=== PATIENT | female | born 1960 | race Caucasian/White ===

== ENCOUNTER → 2018-01-20 12:45 | Outpatient (CLI) | payer BC, SELFPAY ==
--- NOTE | 2018-01-20 12:53 | ECHOD_ITS ---
Reason For Study: MVP Procedure This was a 2D Doppler, Color Flow transthoracic echocardiogram. Exam performed in department. Left Ventricle Normal LV size. The estimated ejection fraction is 60 %. Transmitral diastolic flow velocities suggest mild (stage 1) diastolic dysfunction (reversed pattern). No regional wall motion abnormalities noted. Right Ventricle Normal RV size. Normal systolic function. Atria Normal left atrium. Normal right atrium. Mitral Valve Mild mitral valve prolapse. Mild-Moderate (1-2+) eccentric mitral valve insufficiency. Tricuspid Valve Normal tricuspid valve. Mild (1+) tricuspid valve insufficiency. Pulmonary artery systolic pressure is 25 mmHg. Aortic Valve Normal aortic valve. Trisinus/trileaflet aortic valve. Pulmonic Valve Normal pulmonic valve. Great Vessels Normal aortic root. The pulmonary artery is normal size. Normal inferior vena cava. Pericardium/Pleural No pericardial effusion. MMode/2D Measurements & Calculations LVIDd: 4.3 cm IVSd: 0.92 cm Ao root diam: 3.2 cm LVIDs: 2.8 cm LVPWd: 0.93 cm LA dimension: 3.4 cm RVDd: 2.5 cm FS: 34.7 % LAV(MOD-bp): 59.3 ml EDV(MOD-sp4): 65.3 ml SV(MOD-sp4): 49.3 ml LAV(MOD-bp) Indexed: 33.8 ml/m2 ESV(MOD-sp4): 15.9 ml LAV(MOD-sp2): 68.3 ml EF(MOD-sp4): 75.6 % LAV(MOD-sp4): 38.5 ml LA A4 area: 13.7 cm2 RA A4 area: 11.0 cm2 Doppler Measurements & Calculations MV E max aden: 89.9 cm/sec Lat Peak E' Aden: 9.0 cm/sec Med Peak E' Aden: 6.9 cm/sec MV A max aden: 62.4 cm/sec E/E' lat: 10.0 E/E' med: 13.0 MV E/A: 1.4 Ao V2 max: 146.5 cm/sec LV V1 max: 130.9 cm/sec PA V2 max: 110.8 cm/sec Ao max P.6 mmHg LV V1 max P.9 mmHg Ao V2 mean: 94.6 cm/sec Ao mean P.0 mmHg Ao V2 VTI: 31.1 cm TR max aden: 223.9 cm/sec TR max P.1 mmHg Interpretation Summary Normal LV size. The estimated ejection fraction is 60 %. Mild mitral valve prolapse. Mild-Moderate (1-2+) eccentric mitral valve insufficiency. Mild (1+) tricuspid valve insufficiency. Pulmonary artery systolic pressure is 25 mmHg. Transmitral diastolic flow velocities suggest mild (stage 1) diastolic dysfunction (reversed pattern). Ordering Physician: Brad Art Referring Physician: Brad Art Performed By: Re Henderson, MAXX, RVT
== END ==
PROVIDERS: Family Provider Family Medicine; PCP Family Medicine; Visit Provider Family Medicine
DX: I34.1 Nonrheumatic mitral (valve) prolapse (principal)
CPT/HCPCS: 93306

== ENCOUNTER → 2018-06-20 09:20 | Outpatient (CLI) | payer BC, SELFPAY ==
[2018-06-20 10:54] LABS: Cholesterol 262 mg/dL (200); High Density Lipoprotein 54 mg/dL; Triglycerides 173 mg/dL; Very Low Density Lipoprotein 35 mg/dL (5-40)
== END ==
PROVIDERS: Family Provider Family Medicine; PCP Family Medicine; Visit Provider Family Medicine
DX: E78.5 Hyperlipidemia, unspecified (principal)
CPT/HCPCS: 36415; 80061

== ENCOUNTER → 2018-09-16 10:20 | Outpatient (CLI) | payer BC, SELFPAY ==
[2018-01-22 15:12] VITALS: BMI 21.5
[2018-09-16 13:15] LABS: ALB/GLOB Ratio 1.2 RATIO (0.9-2.4); AST(SGOT) 14 U/L (15-37); Alanine Aminotransfer ALT/SGPT 18 U/L (13-56); Albumin, Serum 3.9 g/dL (3.2-5.0); Alkaline Phosphatase 74 U/L (45-117); Anion Gap 10 (5-15); BUN 12 mg/dL (7-18); BUN/Creat Ratio 16.5 RATIO (10-20); Calcium,Total 8.8 mg/dL (8.5-10.1); Chloride 106 mmol/L (98-107); Cholesterol 164 mg/dL (200); Creatinine, Serum 0.73 mg/dL (0.55-1.02); EST Glomerular Filtration Rate 88 mL/min (>60); Est Glom Filt Rate - Afr Amer 107 mL/min (>60); Globulin 3.3 g/dL (2.2-4.2); Glucose 78 mg/dL (74-106); High Density Lipoprotein 59 mg/dL; Potassium 3.8 mmol/L (3.5-5.1); Protein, Total 7.2 g/dL (6.4-8.2); Sodium Level 142 mmol/L (136-145); Triglycerides 103 mg/dL; Very Low Density Lipoprotein 21 mg/dL (5-40)
== END ==
PROVIDERS: Family Provider Family Medicine; PCP Family Medicine; Visit Provider Family Medicine
DX: Z02.9 Encounter for administrative examinations, unspecified (principal); Z13.220 Encounter for screening for lipoid disorders
CPT/HCPCS: 36415; 80053; 80061

== ENCOUNTER 2018-10-15 17:22 | Inpatient (IN) | payer BC, SELFPAY ==
[2018-10-15 17:24] VITALS: BP 119/73; PULSE 91; RESP 18; TEMP 37; O2SAT 95; BMI 21.1
[2018-10-15 17:25] VITALS: BP 132/73; PULSE 89; RESP 16; TEMP 37.3; O2SAT 96
[2018-10-15 18:24] LABS: Absolute Neutrophil Count 6.4 X10^3/uL (2.0-7.7); Basophil# 0.02 X10^3/uL; Basophil% 0.2 % (0-1); Eosinophil# 0.04 X10^3/uL; Eosinophils% 0.5 % (0-5); Hematocrit 39.4 % (37-47); Hemoglobin 13.6 g/dl (12.0-15.0); Lymphocyte % 10.9 % (19-41); Mean Corp Hgb Conc 34.5 g/gl (32-36); Mean Corpuscular Hgb 30.8 pg (27.0-32.0); Mean Corpuscular Volume 89.3 fL (81-99); Mean Platelet Vol. 10.4 fl (6.2-12.0); Monocyte# 0.82 X10^3/uL; Neutrophil # 6.43 X10^3/uL (2.7-7.7); Neutrophil % 78.3 % (47-70); Platelet Count 214 K/mm3 (150-450); RBC Distribution Width CV 12.4 % (11.6-14.6); Red Blood Count 4.41 M/mm3 (4.2-5.4); White Blood Count 8.2 K/mm3 (4.4-11.0)
[2018-10-15 18:25] VITALS: BP 128/64; PULSE 72; RESP 16; TEMP 36.9; O2SAT 96
[2018-10-15 18:31] LABS: Anion Gap 14 (5-15); BUN 13 mg/dL (7-18); BUN/Creat Ratio 16.4 RATIO (10-20); Calcium,Total 9.4 mg/dL (8.5-10.1); Chloride 98 mmol/L (98-107); Creatinine, Serum 0.79 mg/dL (0.55-1.02); EST Glomerular Filtration Rate 80 mL/min (>60); Est Glom Filt Rate - Afr Amer 97 mL/min (>60); Estimated Creatinine Clearance 76.87 ml/min; Glucose 92 mg/dL (74-106); Potassium 3.3 mmol/L (3.5-5.1); Sodium Level 134 mmol/L (136-145)
[2018-10-15 18:32] LABS: POSITIVE COUNT NO; POSITIVE DIFFERENTIAL NO; POSITIVE MORPHOLOGY NO
[2018-10-15] MEDS: 0.9% Normal Saline 1,000 ML 1000 ML IV (18:44)
[2018-10-15] MEDS: Ondansetron 4 MG/2 ML Vial IV (18:47)
--- NOTE | 2018-10-15 18:54 | CT_ITS ---
STUDY: CT ABDOMEN AND PELVIS WITH CONTRAST REASON FOR EXAM: Female, 58 years old. Abdominal pain. Recent hysterectomy. RADIATION DOSAGE (If Supplied By Facility): CTDIvol = ( 7.53 ) mGy, DLP = ( 633.59 ) mGycm TECHNIQUE: Transaxial images were obtained from the dome of the diaphragm to the symphysis pubis without oral contrast. 75 ml of Isovue 300 contrast was administered. Sagittal and coronal images were reconstructed. Individualized dose optimization techniques were used for this CT. COMPARISON: None. FINDINGS: Left lower lung airspace opacities. The visualized portions of the heart are within normal limits. Small hypodensities compatible with cysts in the liver. Normal gallbladder and extrahepatic biliary system. Normal spleen. Normal pancreas. Normal bilateral adrenal glands. There is 1.0 cm cyst of the right kidney. There is extrarenal pelvis on the right larger than the left. The ureters are not dilated. Normal visualized stomach. Normal small intestine. Normal colon. The appendix is visualized and appears normal. Normal abdominal aorta. Normal inferior vena cava. Normal retroperitoneum. Normal urinary bladder. There is absence of the uterus consistent with a prior hysterectomy. There is no free fluid in the abdomen or pelvis. Normal abdominal wall. Normal osseous structures. CT/Abdomen/Pelvis W IV Cont ONLY IMPRESSION: Status post hysterectomy. No fluid collection. No obstruction. Left lower lung pneumonia. Electronically Signed: Jesus Gibson MD at 19:51 EST , Service support ,
--- NOTE | 2018-10-15 18:54 | CT_ITS ---
STUDY: CTA CHEST REASON FOR EXAM: Female, 58 years old. Shortness of breath and cough, recent surgery RADIATION DOSAGE (If Supplied By Facility): CTDIvol = ( ) mGy, DLP = ( ) mGycm TECHNIQUE: The examination was performed with the intravenous administration of 75ML ml of Isovue 300 contrast material. Post-processing of the angiographic images was performed, with multiplanar reformation and 3D reconstruction. Individualized dose optimization techniques were used for this CT. COMPARISON: None. FINDINGS: Normal enhancement of the main pulmonary artery and right and left pulmonary arteries. Normal enhancement of the bilateral peripheral pulmonary arteries. There is no demonstrated pulmonary embolism. Normal thoracic aorta and visualized great vessels. There is no demonstrated aortic dissection. Normal heart and pericardium. Normal mediastinum. There is left hilar adenopathy, measuring approximately 4.2 x 2.3 x 2.4 cm. Normal visualized trachea and bronchi. The lungs are well expanded. There is left lower lobe infiltrate and/or atelectasis. Normal pleura. Normal chest wall structures. Normal osseous structures. There is a subcentimeter low-attenuation focus of the right hepatic lobe image 55 of series 2, indeterminate for solid versus cystic structure. CT/CTA Chest W/WO Contrast IMPRESSION: Normal CTA chest examination, without a demonstrated pulmonary embolism or arterial dissection. Left lower lobe infiltrate and/or atelectasis. Left hilar adenopathy Electronically Signed: Desean Salas MD at 19:59 EST , Service support ,
--- NOTE | 2018-10-15 18:55 | EKG12_ITS ---
Test Reason : Blood Pressure : / mmHG Vent. Rate : 084 BPM Atrial Rate : 084 BPM P-R Int : 162 ms QRS Dur : 070 ms QT Int : 376 ms P-R-T Axes : 064 -44 014 degrees QTc Int : 444 ms Normal sinus rhythm Possible Left atrial enlargement Left axis deviation Abnormal ECG Confirmed by MALACHI JAIME, TYRONE ([id number]), greeting card editor PRISCILA RUELAS ([id number]) on 10/17/2018 2:00:44 PM Referred By: Mar Garcia Confirmed By:TYRONE LY MD
--- NOTE | 2018-10-15 18:56 | ED.VISSUMM ---
- ER Visit Summary Date of Service: 10/15/18 Chief Complaint: [] Status post laparoscopic hysterectomy about 10 days ago, abdominal pain vomiting cough congestion body ache for days History of Present Illness: The patient is a 58 F [] that history as above patient believes a few days ago she developed body aches cough congestion, abdominal pain vomiting the symptoms all intensified today and she came in for evaluation. She indicates she had her per scopic hysterectomy related to cervical cancer there are no complications she was discharged the day of the surgery, she had a persistent sense of abdominal discomfort that really stable and unchanged and then she began vomiting having the body aches cough congestion shortness of breath she feels if she has the flu she believes she has had low-grade fever her bowel and urinary habits have been unremarkable her incisions are not draining, she generally has no past history Physical Examination: [] 119/80 95% room air sat, afebrile General, no distress resting comfortably HEENT is generally unremarkable The neck is supple no adenopathy Cardiovascular, regular rate and rhythm Lungs, clear bilateral Abdomen, soft nontender, she has the port sites are not draining she has a very mild pain related to palpation of these areas the pain she has she indicates is really not significantly different anyway from her postop status but seems to be worse since she began vomiting there is no rebound guarding organomegaly and there is no focality to her complaints of abdominal pain and again the port sites are not draining show no signs of infection Extremities, no clubbing cyanosis or edema Neurologic, awake alert answering questions appropriately moving all 4 extremities Differentials rather extensive given all the above she will undergo screening labs chest x-ray EKG IV fluids meds, CTA chest to evaluate for pneumonia or PE, CT abdomen Test Results: [] Emergency Department Course and Treatment: [] Please see all of the lab studies and CT reports in the computer, the patient has signs of UTI, signs of left lower lobe pneumonia, CT abdomen CTA chest otherwise showed nothing acute, cultures were sent, she was started on IV antibiotics we have asked the hospitalist see her further management admission Treatment Plan: [] Disposition: [] Admit stable Impression: [] Left lower lobe pneumonia, urinary tract infection, status post laparoscopic hysterectomy This note was generated with [employer]ation software. It may contain incorrect words, spelling, and punctuation that were not noted in review of the chart prior to signing ED Disposition - Plan for ED Patient: Chief Complaint: Nausea/Vomiting Referrals: Brad Art MD [Primary Care Provider] -
--- NOTE | 2018-10-15 19:00 | RAD_ITS ---
STUDY: X-RAY CHEST REASON FOR EXAM: Female, 58 years old. Flulike symptoms TECHNIQUE: Single AP portable view of the chest. COMPARISON: November 12, 2017. FINDINGS: There are left lower lung airspace opacities. There is nipple shadow on the right. There is no demonstrated pleural abnormality. Normal size heart. Normal mediastinum and rose. Normal visualized pulmonary arteries. Normal visualized aortic arch and descending thoracic aorta. Normal visualized thoracic spine. Normal visualized ribs, clavicles, and shoulders. There is no demonstrated abnormality of the visualized soft tissue structures of the upper abdomen. RAD/Chest 1 View (Portable) IMPRESSION: Left lower lung pneumonia. Electronically Signed: Jesus Gibson MD at 20:00 EST , Service support ,
[2018-10-15 19:04] LABS: Pregnancy, Serum, hCG Quali. NEGATIVE Negative (0-9 Nonpreg)
[2018-10-15] MEDS: 0.9% Normal Saline 1,000 ML 999 ML IV (19:04)
[2018-10-15 19:17] LABS: AST(SGOT) 13 U/L (15-37); Alanine Aminotransfer ALT/SGPT 11 U/L (13-56); Albumin, Serum 3.6 g/dL (3.2-5.0); Alkaline Phosphatase 64 U/L (45-117); Bilirubin, Direct 0.17 mg/dL (0.00-0.30); Globulin 4.9 g/dL (2.2-4.2); Lipase 202 U/L (73-393); Protein, Total 8.5 g/dL (6.4-8.2)
[2018-10-15 19:53] LABS: Mucous, Urine 0 SEEN /hpf (<or=2+); Red Blood Cells-Urine 0 SEEN /hpf (0-5)
[2018-10-15 20:03] LABS: Color, Urine Yellow (Yellow); Glucose, Dipstick Normal (Normal); Leukocyte Esterase-Dipstick 500 /ul (Negative); Nitrite-Dipstick Negative (Negative); Occult Blood-Urine 150 /ul (Negative); Protein-Dipstick 15 mg/dl (Negative); Urine Bilirubin Dipstick Negative (Negative); Urine Clarity Sl. Cloudy (Clear); Urine Urobilinogen Normal (Normal); Urine pH 6.5 (5.0 - 8.0)
[2018-10-15 20:04] LABS: Ketone-Dipstick 150 mg/dl (Negative)
--- NOTE | 2018-10-15 20:05 | ED.RN ---
CALL RECEIVED FROM LAB FOR [facility] VALUE OF 150. DR TOMLIN NOTIFIED.
[2018-10-15 20:06] LABS: White Blood Cells 10-25 SEEN /hpf (0-5)
[2018-10-15 20:07] LABS: Squamous Epithelial Cells - UA 0-5 SEEN /hpf (5-10)
[2018-10-15 20:08] LABS: Bacteria RARE /hpf (None Seen)
[2018-10-15 20:15] VITALS: BP 139/85; PULSE 83; RESP 20; O2SAT 100
[2018-10-15] MEDS: Ipratropium/Albuterol Sulfate 3 ML AMPUL.NEB INHALATION (20:48)
--- NOTE | 2018-10-15 21:31 | PCM.HP.STD ---
History of Present Illness Date of Admission: 10/15/18 Chief Complaint: Fever and productive cough for 3 days The patient is a 58 year old F past medical history as listed below. She was admitted through the ED on 10/15/2018 with a complaint of fever, productive cough, and some shortness of breath for the past 3 days. Patient had a laparoscopic hysterectomy about 10 days ago at [facility] on account of cervical cancer. Subsequently felt well but about 4 days ago started having the symptoms. Cough was productive of yellowish sputum and she had assisted mild shortness of breath. He also has subjective fever and chills. She denied any chest pain, any abdominal pain but admitted to nausea and vomiting. Review of systems otherwise negative. In the ED, vitals were significant for respiratory rate of 20 at time of review and labs showed sodium of 135 potassium of 3.3. CBC showed no leukocytosis with white cell count being 8.2. Chest CT done showed no demonstrated PE or aortic dissection but showed a left lower lobe infiltrate and/or atelectasis. Chest x-ray showed left lower lobe pneumonia as well. She is been admitted to for left lower lobe pneumonia. [] Past Medical History Allergies No Known Allergies Allergy (Verified 10/15/18 17:24) Home Medications: Ambulatory Orders Medication Instructions Recorded Acetaminophen [Tylenol Extra 500 mg PO Q6H PRN PRN 10/15/18 Strength] Rosuvastatin Calcium [Crestor] 10 mg PO QHS 10/15/18 Surgical History: Surgical History (Last Updated 01/22/18 @ 15:08 by Pretty Hartmann) Hx of cardiac cath Z98.890 Surgical History: - - laparoscopic hysterectomy at [facility] 10 days ago Psychiatric History: No pertinent psych hx FO[employer] T[employer]ER History: cervical cancer Lives: Spouse/ Significant Other Smoking Status: Never smoker Alcohol: None Drugs: None - *Family History Maternal History Items: Hypertension Paternal History Items: No pertinent history Review of Systems Constitutional: Reports: Chills, Fever, Malaise. Denies: Anorexia Eyes: Denies: Blurred vision HEENT: Denies: Head Aches, Sinus Congestion, Sinus Drainage Cardiovascular: Denies: Chest Pain, Chest Pressure, Heaviness, Orthopnea, Palpitations, Syncope Respiratory: Reports: Cough, Shortness of Breath, Sputum production. Denies: Shortness of breath at rest, Wheezing Gastrointestinal: Reports: Nausea, Vomiting. Denies: Abdominal Pain, Diarrhea Genitourinary: Denies: Dysuria Musculoskeletal: Denies: Joint Pain, Joint Tenderness Skin: Denies: Rash, Wounds Neurological: Denies: Numbness, Tingling, Focal weakness Psychiatric: Denies: Anxiety, Depression, Homicidal Ideations, Suicidal Ideations Hematologic/ Lymphatic: Denies: Easy Bruising, Easy Bleeding VTE Information - Inpt Only VTE Present on Admission: No VTE Pharm Prophylaxis ordered?: Yes - Physical Exam General: Alert, Oriented x3, Cooperative, No apparent distress HEENT: Atraumatic, PERRLA, EOMI, Normocephalic Oral: Moist Mucosa Neck: Supple, No JVD, Negative Carotid Bruits Lungs: Clear to auscultation, Normal air movement, No rhonchi, No wheeze, No rales Cardiovascular: Regular rate, Regular Rhythm, Normal S1, Normal S2, No murmurs Abdomen: Bowel Sounds Present, Soft, Non Tender, Non-Distended, No Hepato-splenomegaly Extremities: No clubbing, No cyanosis, No edema, Capillary Refill Less than 3 Seconds Skin: No rashes, No breakdown Musculoskeletal: No Tenderness to Palpation of Joints or Extremities Lymphatic: No Cervical, Supraclavicular, or Inguinal Adenopathy Neurological: Cranial nerves II-XII grossly intact Psych/Mental Status: Normal Affect, Appropriate, Alert and oriented to time, place, person, mood and affect Vital Signs Temp Pulse Resp BP Pulse Ox 98.4 F 83 20 H 139/85 H 100 10/15/18 18:25 10/15/18 20:15 10/15/18 20:15 10/15/18 20:15 10/15/18 20:15 Oxygen Delivery Method Room Air Weight: 135 lb Body Mass Index (BMI) 21.1 Laboratory Tests Past 24 Hrs 10/15/18 10/15/18 10/15/18 18:06 18:06 18:06 WBC 8.2 RBC 4.41 Hgb 13.6 Hct 39.4 MCV 89.3 MCH 30.8 MCHC 34.5 RDW 12.4 RDW Differential 40.0 Plt Count 214 MPV 10.4 Immature Gran % (Auto) 0.100 Neut % (Auto) 78.3 H Lymph % (Auto) 10.9 L Chase % (Auto) 10.0 Eos % (Auto) 0.5 Baso % (Auto) 0.2 Absolute Neuts (auto) 6.4 Absolute Lymphs (auto) 0.90 Total Counted Not Reportable Sodium 134 L Potassium 3.3 L Chloride 98 Carbon Dioxide 22.0 Anion Gap 14 BUN 13 Creatinine 0.79 Estim Creat Clear Calc 76.87 Est GFR (MDRD) Af Amer 97 Est GFR (MDRD) Non-Af 80 BUN/Creatinine Ratio 16.4 Glucose 92 Calcium 9.4 Total Bilirubin Direct Bilirubin AST ALT Alkaline Phosphatase Troponin I Total Protein Albumin Globulin Lipase Serum , Qual NEGATIVE Urine Color Urine Clarity Urine pH Ur Specific [place] Urine Protein Urine Glucose (UA) Urine Ketones Urine Occult Blood Urine Nitrite Urine Bilirubin Urine Urobilinogen Ur Leukocyte Esterase Urine RBC Urine WBC Ur Squamous Epith Cells Urine Bacteria Urine Mucus 10/15/18 10/15/18 10/15/18 18:06 18:06 19:50 WBC RBC Hgb Hct MCV MCH MCHC RDW RDW Differential Plt Count MPV Immature Gran % (Auto) Neut % (Auto) Lymph % (Auto) Chase % (Auto) Eos % (Auto) Baso % (Auto) Absolute Neuts (auto) Absolute Lymphs (auto) Total Counted Sodium Cancelled Potassium Cancelled Chloride Cancelled Carbon Dioxide Cancelled Anion Gap Cancelled BUN Cancelled Creatinine Cancelled Estim Creat Clear Calc Est GFR (MDRD) Af Amer Cancelled Est GFR (MDRD) Non-Af Cancelled BUN/Creatinine Ratio Cancelled Glucose Cancelled Calcium Cancelled Total Bilirubin 0.80 Direct Bilirubin 0.17 AST 13 L ALT 11 L Alkaline Phosphatase 64 Troponin I 0.016 Total Protein 8.5 H Albumin 3.6 Globulin 4.9 H Lipase 202 Serum , Qual Urine Color Yellow Urine Clarity Sl. Cloudy Urine pH 6.5 Ur Specific [place] 1.010 Urine Protein 15 H Urine Glucose (UA) Normal Urine Ketones 150 H Urine Occult Blood 150 H Urine Nitrite Negative Urine Bilirubin Negative Urine Urobilinogen Normal Ur Leukocyte Esterase 500 H Urine RBC 0 SEEN Urine WBC 10-25 SEEN Ur Squamous Epith Cells 0-5 SEEN Urine Bacteria RARE Urine Mucus 0 SEEN Assessment/Plan 58-year-old female admitted with complaint of subjective fever and chills as well as productive cough, nausea and vomiting. 1. health associated pneumonia had same day surgery about 10 days ago at [facility]- laparoscopic hysteretomy for cervical cancer CXR showed left lower lobe pneumonia, confirmed by CT chest. CT chest showed no PE admit to Med Surg monitored bed CBC no leucocytosis UA showed evidence of UTI, though patient is asymptomatic will give IV levofloxacin hydrate with IVF NS check urine for strep and legionella antigen 2. Kalemia: Potassium is 2.3. We will replace and monitor 3. Hyponatremia: Sodium is 134. Likely due to nausea and vomiting and dehydration. Should resolve with IV fluid administration. Will monitor. 4. Hyperlipideimia: on rosuvastatin 5. History of cervical cancer s/p laparoscopic hysterectomy stable. surgical wounds are well healed will monitor DVT prophylaxis: heparin Code status: full code Patient counseled extensively about different types of CODE STATUS including full code, DNR CCA and DNR CCA. Patient elects to be full code. Total [id number] time 17 minutes. Code Visit OBSV E&M: 90152 Initial observation care L3 Procedures: 33139 Advncd Care Plan 30 Min
--- NOTE | 2018-10-15 21:38 | HP.PCM_ITS ---
History of Present Illness Date of Admission: 10/15/18 Chief Complaint: Fever and productive cough for 3 days The patient is a 58 year old F past medical history as listed below. She was admitted through the ED on 10/15/2018 with a complaint of fever, productive cough, and some shortness of breath for the past 3 days. Patient had a laparoscopic hysterectomy about 10 days ago at [facility] on account of cervical cancer. Subsequently felt well but about 4 days ago started having the symptoms. Cough was productive of yellowish sputum and she had assisted mild shortness of breath. He also has subjective fever and chills. She denied any chest pain, any abdominal pain but admitted to nausea and vomiting. Review of systems otherwise negative. In the ED, vitals were significant for respiratory rate of 20 at time of review and labs showed sodium of 135 potassium of 3.3. CBC showed no leukocytosis with white cell count being 8.2. Chest CT done showed no demonstrated PE or aortic dissection but showed a left lower lobe infiltrate and/or atelectasis. Chest x-ray showed left lower lobe pneumonia as well. She is been admitted to for left lower lobe pneumonia. [] Past Medical History Allergies No Known Allergies Allergy (Verified 10/15/18 17:24) Home Medications: Ambulatory Orders Medication Instructions Recorded Acetaminophen [Tylenol Extra 500 mg PO Q6H PRN PRN 10/15/18 Strength] Rosuvastatin Calcium [Crestor] 10 mg PO QHS 10/15/18 Surgical History: Surgical History (Last Updated 01/22/18 @ 15:08 by Pretty Hartmann) Hx of cardiac cath Z98.890 Surgical History: - - laparoscopic hysterectomy at [facility] 10 days ago Psychiatric History: No pertinent psych hx [employer]LY[employer] History: cervical cancer Lives: Spouse/ Significant Other Smoking Status: Never smoker Alcohol: None Drugs: None - *Family History Maternal History Items: Hypertension Paternal History Items: No pertinent history Review of Systems Constitutional: Reports: Chills, Fever, Malaise. Denies: Anorexia Eyes: Denies: Blurred vision HEENT: Denies: Head Aches, Sinus Congestion, Sinus Drainage Cardiovascular: Denies: Chest Pain, Chest Pressure, Heaviness, Orthopnea, Palpitations, Syncope Respiratory: Reports: Cough, Shortness of Breath, Sputum production. Denies: Shortness of breath at rest, Wheezing Gastrointestinal: Reports: Nausea, Vomiting. Denies: Abdominal Pain, Diarrhea Genitourinary: Denies: Dysuria Musculoskeletal: Denies: Joint Pain, Joint Tenderness Skin: Denies: Rash, Wounds Neurological: Denies: Numbness, Tingling, Focal weakness Psychiatric: Denies: Anxiety, Depression, Homicidal Ideations, Suicidal Ideations Hematologic/ Lymphatic: Denies: Easy Bruising, Easy Bleeding VTE Information - Inpt Only VTE Present on Admission: No VTE Pharm Prophylaxis ordered?: Yes - Physical Exam General: Alert, Oriented x3, Cooperative, No apparent distress HEENT: Atraumatic, PERRLA, EOMI, Normocephalic Oral: Moist Mucosa Neck: Supple, No JVD, Negative Carotid Bruits Lungs: Clear to auscultation, Normal air movement, No rhonchi, No wheeze, No rales Cardiovascular: Regular rate, Regular Rhythm, Normal S1, Normal S2, No murmurs Abdomen: Bowel Sounds Present, Soft, Non Tender, Non-Distended, No Hepato- splenomegaly Extremities: No clubbing, No cyanosis, No edema, Capillary Refill Less than 3 Seconds Skin: No rashes, No breakdown Musculoskeletal: No Tenderness to Palpation of Joints or Extremities Lymphatic: No Cervical, Supraclavicular, or Inguinal Adenopathy Neurological: Cranial nerves II-XII grossly intact Psych/Mental Status: Normal Affect, Appropriate, Alert and oriented to time, place, person, mood and affect Vital Signs Temp Pulse Resp BP Pulse Ox 98.4 F 83 20 H 139/85 H 100 10/15/18 18:25 10/15/18 20:15 10/15/18 20:15 10/15/18 20:15 10/15/18 20:15 Oxygen Delivery Method Room Air Weight: 135 lb Body Mass Index (BMI) 21.1 Laboratory Tests Past 24 Hrs 10/15/18 10/15/18 10/15/18 18:06 18:06 18:06 WBC 8.2 RBC 4.41 Hgb 13.6 Hct 39.4 MCV 89.3 MCH 30.8 MCHC 34.5 RDW 12.4 RDW Differential 40.0 Plt Count 214 MPV 10.4 Immature Gran % (Auto) 0.100 Neut % (Auto) 78.3 H Lymph % (Auto) 10.9 L [place] % (Auto) 10.0 Eos % (Auto) 0.5 Baso % (Auto) 0.2 Absolute Neuts (auto) 6.4 Absolute Lymphs (auto) 0.90 Total Counted Not Reportable Sodium 134 L Potassium 3.3 L Chloride 98 Carbon Dioxide 22.0 Anion Gap 14 BUN 13 Creatinine 0.79 Estim Creat Clear Calc 76.87 Est GFR (MDRD) Af Amer 97 Est GFR (MDRD) Non-Af 80 BUN/Creatinine Ratio 16.4 Glucose 92 Calcium 9.4 Total Bilirubin Direct Bilirubin AST ALT Alkaline Phosphatase Troponin I Total Protein Albumin Globulin Lipase Serum , Qual NEGATIVE Urine Color Urine Clarity Urine pH Ur Specific [place] Urine Protein Urine Glucose (UA) Urine Ketones Urine Occult Blood Urine Nitrite Urine Bilirubin Urine Urobilinogen Ur Leukocyte Esterase Urine RBC Urine WBC Ur Squamous Epith Cells Urine Bacteria Urine Mucus 10/15/18 10/15/18 10/15/18 18:06 18:06 19:50 WBC RBC Hgb Hct MCV MCH MCHC RDW RDW Differential Plt Count MPV Immature Gran % (Auto) Neut % (Auto) Lymph % (Auto) [place] % (Auto) Eos % (Auto) Baso % (Auto) Absolute Neuts (auto) Absolute Lymphs (auto) Total Counted Sodium Cancelled Potassium Cancelled Chloride Cancelled Carbon Dioxide Cancelled Anion Gap Cancelled BUN Cancelled Creatinine Cancelled Estim Creat Clear Calc Est GFR (MDRD) Af Amer Cancelled Est GFR (MDRD) Non-Af Cancelled BUN/Creatinine Ratio Cancelled Glucose Cancelled Calcium Cancelled Total Bilirubin 0.80 Direct Bilirubin 0.17 AST 13 L ALT 11 L Alkaline Phosphatase 64 Troponin I 0.016 Total Protein 8.5 H Albumin 3.6 Globulin 4.9 H Lipase 202 Serum , Qual Urine Color Yellow Urine Clarity Sl. Cloudy Urine pH 6.5 Ur Specific [place] 1.010 Urine Protein 15 H Urine Glucose (UA) Normal Urine Ketones 150 H Urine Occult Blood 150 H Urine Nitrite Negative Urine Bilirubin Negative Urine Urobilinogen Normal Ur Leukocyte Esterase 500 H Urine RBC 0 SEEN Urine WBC 10-25 SEEN Ur Squamous Epith Cells 0-5 SEEN Urine Bacteria RARE Urine Mucus 0 SEEN Assessment/Plan 58-year-old female admitted with complaint of subjective fever and chills as well as productive cough, nausea and vomiting. 1. health associated pneumonia * had same day surgery about 10 days ago at [facility]- laparoscopic hysteretomy for cervical cancer * CXR showed left lower lobe pneumonia, confirmed by CT chest. * CT chest showed no PE * admit to Med Surg monitored bed * CBC no leucocytosis * UA showed evidence of UTI, though patient is asymptomatic * will give IV levofloxacin * hydrate with IVF NS * check urine for strep and legionella antigen * 2. Kalemia: Potassium is 2.3. We will replace and monitor 3. Hyponatremia: Sodium is 134. Likely due to nausea and vomiting and dehydration. Should resolve with IV fluid administration. Will monitor. 4. Hyperlipideimia: on rosuvastatin 5. History of cervical cancer s/p laparoscopic hysterectomy * stable. surgical wounds are well healed * will monitor * DVT prophylaxis: heparin Code status: full code * Patient counseled extensively about different types of CODE STATUS including full code, DNR CCA and DNR CCA. Patient elects to be full code. Total [id number] time 17 minutes. Code Visit OBSV E&M: 65657 Initial observation care L3 Procedures: 77077 Advncd Care Plan 30 Min
[2018-10-15 22:04] VITALS: BMI 20.5
[2018-10-15 22:11] VITALS: BP 123/70; PULSE 88; RESP 18; TEMP 37.9; O2SAT 97
[2018-10-15 22:53] VITALS: PULSE 87
[2018-10-15] MEDS: Acetaminophen 500 MG Tablet PO (23:20)
[2018-10-15] MEDS: 0.9% Normal Saline 1,000 ML 125 ML IV (23:21)
[2018-10-15] MEDS: Atorvastatin Calcium 20 MG Tablet PO (23:29)
[2018-10-16] VITALS (10 sets, daily range): BP systolic 104–127; BP diastolic 58–73; PULSE 72–93; RESP 16–20; TEMP 36.6–38.2; O2SAT 94–97
[2018-10-16] MEDS: Acetaminophen 500 MG Tablet PO ×2 (05:59→18:03)
[2018-10-16 07:11] LABS: Absolute Lymphocyte Count 0.64 X10^3/ul (0.83-4.51); Absolute Neutrophil Count 4.3 X10^3/uL (2.0-7.7); Basophil# 0.02 X10^3/uL; Basophil% 0.4 % (0-1); Eosinophil# 0.03 X10^3/uL; Eosinophils% 0.5 % (0-5); Hematocrit 33.7 % (37-47); Hemoglobin 11.2 g/dl (12.0-15.0); Lymphocyte # 0.64 X10^3/ul (4.0); Lymphocyte % 11.2 % (19-41); Mean Corp Hgb Conc 33.2 g/gl (32-36); Mean Corpuscular Hgb 30.3 pg (27.0-32.0); Mean Corpuscular Volume 91.1 fL (81-99); Mean Platelet Vol. 10.8 fl (6.2-12.0); Monocyte# 0.69 X10^3/uL; Monocyte% 12.1 % (0-10); Neutrophil # 4.31 X10^3/uL (2.7-7.7); Neutrophil % 75.8 % (47-70); Platelet Count 164 K/mm3 (150-450); RBC Distribution Width CV 12.3 % (11.6-14.6); White Blood Count 5.7 K/mm3 (4.4-11.0)
[2018-10-16 07:15] LABS: POSITIVE COUNT NO; POSITIVE DIFFERENTIAL NO; POSITIVE MORPHOLOGY NO
[2018-10-16 07:24] LABS: Anion Gap 11 (5-15); BUN 8 mg/dL (7-18); BUN/Creat Ratio 13.4 RATIO (10-20); Chloride 107 mmol/L (98-107); EST Glomerular Filtration Rate 110 mL/min (>60); Est Glom Filt Rate - Afr Amer 133 mL/min (>60); Estimated Creatinine Clearance 98.34 ml/min; Glucose 96 mg/dL (74-106); Potassium 3.6 mmol/L (3.5-5.1); Sodium Level 140 mmol/L (136-145)
[2018-10-16] MEDS: 0.9% Normal Saline 1,000 ML 125 ML IV (07:30)
--- NOTE | 2018-10-16 09:54 | PN_ITS ---
Subjective: Patient is a 58-year-old lady who presented with progressive shortness of breath. Imaging studies obtained on admission demonstrated right lower lung infiltrate consistent with pneumonia admitted to regular nursing floor for further management 10/16/2018: Seen complains of nausea as well as shortness of breath Vitals/I&O's: Vital Signs Temp Pulse Resp BP Pulse Ox 99 F 76 20 H 104/62 95 10/16/18 02:38 10/16/18 06:59 10/16/18 02:38 10/16/18 02:38 10/16/18 07:30 Oxygen Delivery Method Room Air Weight: 59.5 kg Body Mass Index (BMI) 20.5 Intake and Output for Last 24 Hours 10/14/18 10/15/18 10/16/18 23:59 23:59 23:59 Intake Total 1473 / 1473 Output Total 1200 / 1200 Balance 273 / 273 Microbiology Past 72 Hours 10/15/18 19:58 Urine, Clean Catch Legionella Antigen - Final 10/15/18 19:58 Urine, Clean Catch Streptococcus pneumoniae Antigen (M - Final Laboratory Results 10/15/18 18:06: WBC 8.2, RBC 4.41, Hgb 13.6, Hct 39.4, MCV 89.3, MCH 30.8, MCHC 34.5, RDW 12.4, RDW Differential 40.0, Plt Count 214, MPV 10.4, Immature Gran % (Auto) 0.100, Neut % (Auto) 78.3 H, Lymph % (Auto) 10.9 L, [place] % (Auto) 10.0, Eos % (Auto) 0.5, Baso % (Auto) 0.2, Absolute Neuts (auto) 6.4, Absolute Lymphs (auto) 0.90, Total Counted Not Reportable 10/15/18 18:06: Sodium 134 L, Potassium 3.3 L, Chloride 98, Carbon Dioxide 22.0, Anion Gap 14, BUN 13, Creatinine 0.79, Estim Creat Clear Calc 76.87, Est GFR (MDRD) Af Amer 97, Est GFR (MDRD) Non-Af 80, BUN/Creatinine Ratio 16.4, Glucose 92, Calcium 9.4 10/15/18 18:06: Serum , Qual NEGATIVE 10/15/18 18:06: Sodium Cancelled, Potassium Cancelled, Chloride Cancelled, Carbon Dioxide Cancelled, Anion Gap Cancelled, BUN Cancelled, Creatinine Cancelled, Est GFR (MDRD) Af Amer Cancelled, Est GFR (MDRD) Non-Af Cancelled, BUN/Creatinine Ratio Cancelled, Glucose Cancelled, Calcium Cancelled, Total Bilirubin 0.80, Direct Bilirubin 0.17, AST 13 L, ALT 11 L, Alkaline Phosphatase 64, Total Protein 8.5 H, Albumin 3.6, Globulin 4.9 H, Lipase 202 10/15/18 18:06: Troponin I 0.016 10/15/18 19:50: Urine Color Yellow, Urine Clarity Sl. Cloudy, Urine pH 6.5, Ur Specific [place] 1.010, Urine Protein 15 H, Urine Glucose (UA) Normal, Urine Ketones 150 H, Urine Occult Blood 150 H, Urine Nitrite Negative, Urine Bilirubin Negative, Urine Urobilinogen Normal, Ur Leukocyte Esterase 500 H, Urine RBC 0 SEEN, Urine WBC 10-25 SEEN, Ur Squamous Epith Cells 0-5 SEEN, Urine Bacteria RARE, Urine Mucus 0 SEEN 10/16/18 06:32: Sodium 140, Potassium 3.6, Chloride 107, Carbon Dioxide 22.0, Anion Gap 11, BUN 8, Creatinine 0.60, Estim Creat Clear Calc 98.34, Est GFR (MDRD) Af Amer 133, Est GFR (MDRD) Non-Af 110, BUN/Creatinine Ratio 13.4, Glucose 96, Calcium 8.0 L 10/16/18 06:32: WBC 5.7, RBC 3.70 L, Hgb 11.2 L, Hct 33.7 L, MCV 91.1, MCH 30.3, MCHC 33.2, RDW 12.3, RDW Differential 40.0, Plt Count 164, MPV 10.8, Immature Gran % (Auto) 0.000, Neut % (Auto) 75.8 H, Lymph % (Auto) 11.2 L, [place] % (Auto) 12.1 H, Eos % (Auto) 0.5, Baso % (Auto) 0.4, Absolute Neuts (auto) 4.3, Absolute Lymphs (auto) 0.64 L, Total Counted Not Reportable Current Medications Acetaminophen (Tylenol) 500 mg PO Q6H PRN PRN PRN Reason: PAIN Last Admin: 10/16/18 05:59 Dose: 500 mg Atorvastatin Calcium (Lipitor) 20 mg PO QHS [facility] Last Admin: 10/15/18 23:29 Dose: 20 mg Enoxaparin Sodium (Lovenox) 40 mg SC DAILY@1000 [facility] Sodium Chloride () 1,000 mls @ 125 mls/hr IV .Q8H [facility] Stop: 10/16/18 14:29 Last Admin: 10/15/18 23:21 Dose: 125 mls/hr Levofloxacin (Levaquin Iv) 500 mg in 100 mls @ 100 mls/hr IV Q24 [facility] Magnesium Hydroxide (Milk Of Magnesia) 30 ml PO DAILY PRN PRN PRN Reason: Constipation Nutritional Formula (Lactose Free) (Ensure Enlive) 120 ml PO 4X/DAY [facility] Sodium Chloride () 5 - 15 ml IV UD PRN PRN Reason: SALINE FLUSH Medical Necessity - Tobacco Use Smoking Status: Never smoker Assessment/Plan Patient is a 58-year-old lady who presented with progressive shortness of breath. Imaging studies obtained on admission demonstrated right lower lung infiltrate consistent with pneumonia admitted to regular nursing floor for further management 1. Community-acquired pneumonia: Suspected to be secondary to streptococci pneumonia. Patient is admitted to regular floor. Blood and sputum cultures sent. Patient placed on Levaquin, patient was also placed on oxygen titrated to keep also is greater than 92 2. Acute cystitis on Levaquin following cultures 3. Hypokalemia corrected per protocol 4. Recent hysterectomy on 10/05/2018 at [facility] on account of cervical CA 5. Dyslipidemia-patient is on statin therapy, continued at home dose 6. DVT prophylaxis SC Lovenox Active Medications Acetaminophen (Tylenol) 500 mg PO Q6H PRN PRN PRN Reason: PAIN Last Admin: 10/16/18 05:59 Dose: 500 mg Atorvastatin Calcium (Lipitor) 20 mg PO QHS [facility] Last Admin: 10/15/18 23:29 Dose: 20 mg Enoxaparin Sodium (Lovenox) 40 mg SC DAILY@1000 [facility] Last Admin: 10/16/18 10:18 Dose: Not Given Levofloxacin (Levaquin Iv) 500 mg in 100 mls @ 100 mls/hr IV Q24 [facility] Last Admin: 10/16/18 10:53 Dose: 100 mls/hr Influenza Virus Vaccine Quadrival (Fluarix/Fluzone) 0.5 ml IM .ONCE ONE Stop: 10/17/18 10:01 Magnesium Hydroxide (Milk Of Magnesia) 30 ml PO DAILY PRN PRN PRN Reason: Constipation Nutritional Formula (Lactose Free) (Ensure Enlive) 120 ml PO 4X/DAY [facility] Last Admin: 10/16/18 13:37 Dose: Not Given Promethazine HCl (Phenergan) 12.5 mg IM Q4H PRN PRN PRN Reason: NAUSEA/VOMITING Sodium Chloride () 5 - 15 ml IV UD PRN PRN Reason: SALINE FLUSH Clinical Impression(s) from Imaging Studies Abdomen/Pelvis CT 10/15/18 18:54 IMPRESSION: Status post hysterectomy. No fluid collection. No obstruction. Left lower lung pneumonia. Electronically Signed: Jesus Gibson MD at 19:51 EST , Service support , Chest CTA 10/15/18 18:54 IMPRESSION: Normal CTA chest examination, without a demonstrated pulmonary embolism or arterial dissection. Left lower lobe infiltrate and/or atelectasis. Left hilar adenopathy Electronically Signed: Desean Salas MD at 19:59 EST , Service support , Chest X-Ray 10/15/18 19:00 IMPRESSION: Left lower lung pneumonia. Electronically Signed: Jesus Gibson MD at 20:00 EST , Service support , Code Visit Inpatient E&M: 15515 Subs Hosp L3
[2018-10-16] MEDS: levoFLOXacin IV 500 MG/100 ML BAG 100 MG IV (10:53)
[2018-10-16] MEDS: proMETHazine 25 MG/ML Syringe 12.5 MG IM (15:06)
[2018-10-16] MEDS: Atorvastatin Calcium 20 MG Tablet PO (20:18)
[2018-10-17 03:05] VITALS: BP 116/61; PULSE 87; RESP 18; TEMP 38.2; O2SAT 95
[2018-10-17] MEDS: Acetaminophen 500 MG Tablet PO (03:05)
[2018-10-17 06:31] LABS: Hematocrit 35.7 % (37-47); Mean Corp Hgb Conc 33.6 g/gl (32-36); Mean Corpuscular Hgb 30.8 pg (27.0-32.0); Mean Corpuscular Volume 91.8 fL (81-99); Mean Platelet Vol. 10.3 fl (6.2-12.0); Platelet Count 166 K/mm3 (150-450); RBC Distribution Width SD 39.6 fl (35.1-43.9); Red Blood Count 3.89 M/mm3 (4.2-5.4)
[2018-10-17 06:33] LABS: Scan Indicated on CBC? Y/N NO
[2018-10-17 06:46] LABS: Anion Gap 9 (5-15); BUN 5 mg/dL (7-18); BUN/Creat Ratio 7.3 RATIO (10-20); Calcium,Total 8.7 mg/dL (8.5-10.1); Chloride 103 mmol/L (98-107); Creatinine, Serum 0.68 mg/dL (0.55-1.02); EST Glomerular Filtration Rate 95 mL/min (>60); Est Glom Filt Rate - Afr Amer 115 mL/min (>60); Estimated Creatinine Clearance 86.77 ml/min; Glucose 115 mg/dL (74-106); Potassium 3.3 mmol/L (3.5-5.1); Sodium Level 138 mmol/L (136-145)
[2018-10-17 07:53] VITALS: O2SAT 96
--- NOTE | 2018-10-17 08:38 | PCM.PN.HOSP ---
Subjective: Patient seen appears much sicker compared to the day prior. Patient is spiking fever and sweating profusely. Did repeat blood cultures as well as respiratory panel. Objective: GENERAL: Ill-looking HEENT: Atraumatic; moist oral mucosa EYES; Anicteric, Normal Conjunctiva NECK; supple, normal thyroid, no distended JVD. RESPIRATORY: Diminished to auscultation bilaterally, CARDIOVASCULAR: Regular S1 S2, no audible murmurs GI: soft, non-tender, normoactive bowel sounds, : No Renal angle tenderness; EXTREMITIES: No edema, no clubbing, no cyanosis. MUSCULOSKELETAL: No Joint Tenderness; no muscle waisting NEURO: Awake; no lateralizing signs. SKIN: No Rash PSYCH; Normal affect Vitals/I&O's: Vital Signs Temp Pulse Resp BP Pulse Ox 100.8 F H 87 18 116/61 96 10/17/18 03:05 10/17/18 03:05 10/17/18 03:05 10/17/18 03:05 10/17/18 07:53 Oxygen Delivery Method Room Air Weight: 59.5 kg Body Mass Index (BMI) 20.5 Intake and Output for Last 24 Hours 10/15/18 10/16/18 10/17/18 23:59 23:59 23:59 Intake Total 3373 / 3373 Output Total 3800 / 3800 900 / 900 Balance -427 / -427 -900 / -900 Microbiology Past 72 Hours 10/15/18 19:58 Urine, Clean Catch Legionella Antigen - Final 10/15/18 19:58 Urine, Clean Catch Streptococcus pneumoniae Antigen (M - Final Laboratory Results 10/17/18 06:06: WBC 6.0, RBC 3.89 L, Hgb 12.0, Hct 35.7 L, MCV 91.8, MCH 30.8, MCHC 33.6, RDW 12.0, RDW Differential 39.6, Plt Count 166, MPV 10.3 10/17/18 06:06: Sodium 138, Potassium 3.3 L, Chloride 103, Carbon Dioxide 26.0, Anion Gap 9, BUN 5 L, Creatinine 0.68, Estim Creat Clear Calc 86.77, Est GFR (MDRD) Af Amer 115, Est GFR (MDRD) Non-Af 95, BUN/Creatinine Ratio 7.3 L, Glucose 115 H, Calcium 8.7, Magnesium 2.0 Current Medications Acetaminophen (Tylenol) 500 mg PO Q6H PRN PRN PRN Reason: PAIN Last Admin: 10/17/18 03:05 Dose: 500 mg Atorvastatin Calcium (Lipitor) 20 mg PO QHS [facility] Last Admin: 10/16/18 20:18 Dose: 20 mg Enoxaparin Sodium (Lovenox) 40 mg SC DAILY@1000 [facility] Last Admin: 10/16/18 10:18 Dose: Not Given Levofloxacin (Levaquin Iv) 500 mg in 100 mls @ 100 mls/hr IV Q24 [facility] Last Admin: 10/16/18 10:53 Dose: 100 mls/hr Influenza Virus Vaccine Quadrival (Fluarix/Fluzone) 0.5 ml IM .ONCE ONE Stop: 10/17/18 10:01 Magnesium Hydroxide (Milk Of Magnesia) 30 ml PO DAILY PRN PRN PRN Reason: Constipation Nutritional Formula (Lactose Free) (Ensure Enlive) 120 ml PO 4X/DAY [facility] Last Admin: 10/16/18 20:18 Dose: 120 ml Promethazine HCl (Phenergan) 12.5 mg IM Q4H PRN PRN PRN Reason: NAUSEA/VOMITING Last Admin: 10/16/18 15:06 Dose: 12.5 mg Sodium Chloride () 5 - 15 ml IV UD PRN PRN Reason: SALINE FLUSH Medical Necessity - Tobacco Use Smoking Status: Never smoker Assessment/Plan Patient is a 58-year-old lady who presented with progressive shortness of breath. Imaging studies obtained on admission demonstrated right lower lung infiltrate consistent with pneumonia admitted to regular nursing floor for further management 1. Community-acquired pneumonia: Suspected to be secondary to streptococci pneumonia. Patient is admitted to regular floor. Blood and sputum cultures sent. Patient placed on Levaquin, patient was also placed on oxygen titrated to keep also is greater than 92. Patient appears much sicker compared to the day prior repeat blood cultures in addition to sputum culture sent. Also requested for acute respiratory panel 2. Acute cystitis on Levaquin urine cultures pending 3. Hypokalemia corrected per protocol 4. Recent hysterectomy on 10/05/2018 at [facility] on account of cervical CA 5. Dyslipidemia-patient is on statin therapy, continued at home dose 6. DVT prophylaxis SC Lovenox Code Visit Inpatient E&M: [id number] [facility] Hosp L3
[2018-10-17 09:05] VITALS: BP 107/66; PULSE 71; RESP 16; TEMP 37.4; O2SAT 94
[2018-10-17] MEDS: levoFLOXacin IV 500 MG/100 ML BAG 100 MG IV (09:20)
[2018-10-17] MEDS: 0.9% NaCl Peripheral Flush Adult/Peds IV (09:20)
[2018-10-17] MEDS: Enoxaparin 40 MG/0.4 ML Syringe SC (09:20)
[2018-10-17 15:05] VITALS: BP 107/60; PULSE 71; RESP 16; TEMP 37.2; O2SAT 95
[2018-10-17 21:19] VITALS: BP 107/76; PULSE 77; RESP 18; TEMP 36.7; O2SAT 94
[2018-10-17] MEDS: Atorvastatin Calcium 20 MG Tablet PO (21:31)
[2018-10-18] VITALS (7 sets, daily range): BP systolic 100–121; BP diastolic 60–66; PULSE 65–71; RESP 18; TEMP 36.6–37; O2SAT 92–97
[2018-10-18] MEDS: guaiFENesin 10 ML UDC (200MG/10ML) 15 ML PO ×2 (03:36→21:21)
[2018-10-18 08:08] LABS: Hematocrit 36.4 % (37-47); Mean Corpuscular Hgb 30.3 pg (27.0-32.0); Mean Corpuscular Volume 91.9 fL (81-99); Mean Platelet Vol. 10.4 fl (6.2-12.0); Platelet Count 201 K/mm3 (150-450); RBC Distribution Width CV 12.1 % (11.6-14.6); RBC Distribution Width SD 39.8 fl (35.1-43.9); Red Blood Count 3.96 M/mm3 (4.2-5.4); Scan Indicated on CBC? Y/N NO; White Blood Count 4.4 K/mm3 (4.4-11.0)
[2018-10-18 08:43] LABS: Anion Gap 9 (5-15); BUN 10 mg/dL (7-18); BUN/Creat Ratio 13.4 RATIO (10-20); Chloride 103 mmol/L (98-107); Creatinine, Serum 0.75 mg/dL (0.55-1.02); EST Glomerular Filtration Rate 85 mL/min (>60); Est Glom Filt Rate - Afr Amer 103 mL/min (>60); Estimated Creatinine Clearance 78.67 ml/min; Glucose 97 mg/dL (74-106); Potassium 3.4 mmol/L (3.5-5.1); Sodium Level 140 mmol/L (136-145)
--- NOTE | 2018-10-18 09:00 | PN_ITS ---
Subjective: Since seen complains of intermittent loose bowel movement. Remains afebrile this a.m. Urine cultures grew staph epi. Blood cultures still pending. Objective: GENERAL: Ill-looking HEENT: Atraumatic; moist oral mucosa EYES; Anicteric, Normal Conjunctiva NECK; supple, normal thyroid, no distended JVD. RESPIRATORY: Diminished to auscultation bilaterally, CARDIOVASCULAR: Regular S1 S2, no audible murmurs GI: soft, non-tender, normoactive bowel sounds, : No Renal angle tenderness; EXTREMITIES: No edema, no clubbing, no cyanosis. MUSCULOSKELETAL: No Joint Tenderness; no muscle waisting NEURO: Awake; no lateralizing signs. SKIN: No Rash PSYCH; Normal affect Vitals/I&O's: Vital Signs Temp Pulse Resp BP Pulse Ox 98 F 71 18 101/60 96 10/18/18 02:14 10/18/18 02:14 10/18/18 02:14 10/18/18 02:14 10/18/18 07:20 Oxygen Delivery Method Room Air Weight: 59.5 kg Body Mass Index (BMI) 20.5 Intake and Output for Last 24 Hours 10/16/18 10/17/18 10/18/18 23:59 23:59 23:59 Intake Total 3373 / 3373 360 / 360 Output Total 3800 / 3800 900 / 900 800 / 800 Balance -427 / -427 -900 / -900 -440 / -440 Microbiology Past 72 Hours 10/15/18 19:58 Urine, Clean Catch Urine Culture - Final Staphylococcus epidermidis 10/17/18 10:40 Mucosa - Nasopharyngeal Respiratory Panel (PCR) - Final 10/15/18 19:58 Urine, Clean Catch Legionella Antigen - Final 10/15/18 19:58 Urine, Clean Catch Streptococcus pneumoniae Antigen (M - Final Laboratory Results 10/18/18 07:35: WBC 4.4, RBC 3.96 L, Hgb 12.0, Hct 36.4 L, MCV 91.9, MCH 30.3, MCHC 33.0, RDW 12.1, RDW Differential 39.8, Plt Count 201, MPV 10.4 10/18/18 07:35: Sodium 140, Potassium 3.4 L, Chloride 103, Carbon Dioxide 28.0, Anion Gap 9, BUN 10, Creatinine 0.75, Estim Creat Clear Calc 78.67, Est GFR (MDRD) Af Amer 103, Est GFR (MDRD) Non-Af 85, BUN/Creatinine Ratio 13.4, Glucose 97, Calcium 9.0 Current Medications Acetaminophen (Tylenol) 500 mg PO Q6H PRN PRN PRN Reason: PAIN Last Admin: 10/17/18 03:05 Dose: 500 mg Atorvastatin Calcium (Lipitor) 20 mg PO QHS [facility] Last Admin: 10/17/18 21:31 Dose: 20 mg Enoxaparin Sodium (Lovenox) 40 mg SC DAILY@1000 [facility] Last Admin: 10/17/18 09:20 Dose: 40 mg Guaifenesin (Robitussin) 15 ml PO Q6H PRN PRN PRN Reason: COUGH Last Admin: 10/18/18 03:36 Dose: 15 ml Levofloxacin (Levaquin Iv) 500 mg in 100 mls @ 100 mls/hr IV Q24 [facility] Last Admin: 10/17/18 09:20 Dose: 100 mls/hr Magnesium Hydroxide (Milk Of Magnesia) 30 ml PO DAILY PRN PRN PRN Reason: Constipation Nutritional Formula (Lactose Free) (Ensure Enlive) 120 ml PO 4X/DAY [facility] Last Admin: 10/17/18 21:31 Dose: Not Given Potassium Chloride (K-Dur) 20 meq PO BIDCM [facility] Promethazine HCl (Phenergan) 12.5 mg IM Q4H PRN PRN PRN Reason: NAUSEA/VOMITING Last Admin: 10/16/18 15:06 Dose: 12.5 mg Sodium Chloride () 5 - 15 ml IV UD PRN PRN Reason: SALINE FLUSH Last Admin: 10/17/18 09:20 Dose: 10 ml Medical Necessity - Tobacco Use Smoking Status: Never smoker Assessment/Plan Patient is a 58-year-old lady who presented with progressive shortness of breath. Imaging studies obtained on admission demonstrated right lower lung infiltrate consistent with pneumonia admitted to regular nursing floor for further management 1. Community-acquired pneumonia: Suspected to be secondary to streptococci pneumonia. Patient is admitted to regular floor. Blood and sputum cultures sent. Patient placed on Levaquin, patient was also placed on oxygen titrated to keep also is greater than 92. Patient respiratory panel came back negative blood cultures drawn the day prior came back negative 2. Acute cystitis with staph epi on Levaquin urine 3. Hypokalemia corrected per protocol 4. Recent hysterectomy on 10/05/2018 at [facility] on account of cervical CA 5. Dyslipidemia-patient is on statin therapy, continued at home dose 6. DVT prophylaxis SC Lovenox Code Visit Inpatient E&M: [id number] Subs Hosp L2
[2018-10-18] MEDS: Enoxaparin 40 MG/0.4 ML Syringe SC (09:03)
[2018-10-18] MEDS: levoFLOXacin 750 MG Tablet PO (10:03)
[2018-10-18] MEDS: Atorvastatin Calcium 20 MG Tablet PO (21:11)
[2018-10-19 03:00] VITALS: BP 107/67; PULSE 64; RESP 18; TEMP 36.8; O2SAT 96
[2018-10-19 03:13] VITALS: RESP 18; O2SAT 96
[2018-10-19] MEDS: levoFLOXacin 750 MG Tablet PO (05:57)
[2018-10-19 07:31] LABS: Anion Gap 10 (5-15); BUN 11 mg/dL (7-18); BUN/Creat Ratio 16.3 RATIO (10-20); Calcium,Total 9.2 mg/dL (8.5-10.1); Chloride 105 mmol/L (98-107); Creatinine, Serum 0.67 mg/dL (0.55-1.02); EST Glomerular Filtration Rate 96 mL/min (>60); Est Glom Filt Rate - Afr Amer 116 mL/min (>60); Estimated Creatinine Clearance 88.07 ml/min; Glucose 95 mg/dL (74-106); Potassium 4.1 mmol/L (3.5-5.1); Sodium Level 142 mmol/L (136-145)
[2018-10-19 08:19] VITALS: BP 102/64; PULSE 67; RESP 18; TEMP 36.7; O2SAT 96
[2018-10-19] MEDS: Enoxaparin 40 MG/0.4 ML Syringe SC (08:25)
--- NOTE | 2018-10-19 08:39 | DCINST_ITS ---
You will use the following diet at home:: No restrictions Your food should be the consistency of: Regular Discharge Activity: Return to Normal Activity Allergies/Adverse Reactions: Allergies No Known Allergies Allergy (Verified 10/15/18 17:24) Medications to take at Discharge Acetaminophen [Tylenol] 500 mg PO Q6H PRN PRN 10/15/18 Rosuvastatin Calcium [Crestor] 10 mg PO QHS 10/15/18 levoFLOXacin tablet [Levaquin tablet] 750 mg PO DAILY@0600 #5 tablet 10/19/18 The following prescriptions were given: levoFLOXacin tablet [Levaquin tablet] 750 mg PO DAILY@0600 #5 tablet Primary Care Physician: Brad Art MD [Primary Care Provider] - Please follow up with your Primary Care Physician in: in 1-2 weeks Test Results: Test results from this visit will be discussed in further detail at your follow- up appointment, if applicable. Proposed Discharge Date: 10/19/18
--- NOTE | 2018-10-19 08:40 | PCM.DC.SUM ---
Discharge Date and Diagnosis - Problem List Patient Problems: Active and Suspected Problems (Last Reviewed 01/22/18 @ 15:07 by Pretty Hartmann) Dyslipidemia (Acute) Date of Admission: 10/15/18 Date of Discharge: 10/19/18 - Primary Discharge Diagnosis Active and Suspected Problems (Last Reviewed 01/22/18 @ 15:07 by Pretty Hartmann) Dyslipidemia (Acute) - Secondary Discharge Diagnosis Chronic Problems (Last Reviewed 01/22/18 @ 15:07 by Pretty Hartmann) Pneumonia (Chronic) Hospital Course and Treatment Imaging Results: Clinical Impression(s) from Imaging Studies Abdomen/Pelvis CT 10/15/18 18:54 IMPRESSION: Status post hysterectomy. No fluid collection. No obstruction. Left lower lung pneumonia. Electronically Signed: Jesus Gibson MD at 19:51 EST , Service support , Chest CTA 10/15/18 18:54 IMPRESSION: Normal CTA chest examination, without a demonstrated pulmonary embolism or arterial dissection. Left lower lobe infiltrate and/or atelectasis. Left hilar adenopathy Electronically Signed: Desean Salas MD at 19:59 EST , Service support , Chest X-Ray 10/15/18 19:00 IMPRESSION: Left lower lung pneumonia. Electronically Signed: Jesus Gibson MD at 20:00 EST , Service support , Summary of Care Provided: Patient is a 58-year-old lady who presented with progressive shortness of breath. Imaging studies obtained on admission demonstrated right lower lung infiltrate consistent with pneumonia admitted to regular nursing floor for further management 1. Community-acquired pneumonia: Suspected to be secondary to streptococci pneumonia. Patient is admitted to regular floor. Blood and sputum cultures sent. Patient placed on Levaquin, patient was also placed on oxygen titrated to keep also is greater than 92. Patient respiratory panel came back negative blood cultures had remained negative to date at the time of discharge 2. Acute cystitis with staph epi on Levaquin urine 3. Hypokalemia corrected per protocol 4. Recent hysterectomy on 10/05/2018 at [facility] on account of cervical CA 5. Dyslipidemia-patient is on statin therapy, continued at home dose 6. DVT prophylaxis SC Lovenox Patient Problems: Active and Suspected Problems (Last Reviewed 01/22/18 @ 15:07 by Pretyt Hartmann) Dyslipidemia (Acute) Objective: GENERAL: cooperative HEENT: Atraumatic; moist oral mucosa EYES; Anicteric, Normal Conjunctiva NECK; supple, normal thyroid, no distended JVD. RESPIRATORY: Diminished to auscultation bilaterally, CARDIOVASCULAR: Regular S1 S2, no audible murmurs GI: soft, non-tender, normoactive bowel sounds, : No Renal angle tenderness; EXTREMITIES: No edema, no clubbing, no cyanosis. NEURO: Awake; no lateralizing signs. SKIN: No Rash PSYCH; Normal affect - Physical Exam Vital Signs Temp Pulse Resp BP Pulse Ox 98.0 F 67 18 102/64 96 10/19/18 08:19 10/19/18 08:19 10/19/18 08:19 10/19/18 08:19 10/19/18 08:19 Oxygen Delivery Method Room Air Weight: 59.5 kg Body Mass Index (BMI) 20.5 Intake and Output for Last 24 Hours 10/17/18 10/18/18 10/19/18 23:59 23:59 23:59 Intake Total 860 / 860 800 / 800 Output Total 900 / 900 800 / 800 700 / 700 Balance -900 / -900 60 / 60 100 / 100 Microbiology Past 72 Hours 10/15/18 19:58 Urine Culture - Final Urine, Clean Catch Staphylococcus epidermidis 10/17/18 10:40 Respiratory Panel (PCR) - Final Mucosa - Nasopharyngeal 10/15/18 19:58 Legionella Antigen - Final Urine, Clean Catch 10/15/18 19:58 Streptococcus pneumoniae Antigen (M - Final Urine, Clean Catch Laboratory Tests Past 24 Hrs 10/18/18 10/19/18 07:35 06:02 Sodium 140 142 Potassium 3.4 L 4.1 Chloride 103 105 Carbon Dioxide 28.0 27.0 Anion Gap 9 10 BUN 10 11 Creatinine 0.75 0.67 Estim Creat Clear Calc 78.67 88.07 Est GFR (MDRD) Af Amer 103 116 Est GFR (MDRD) Non-Af 85 96 BUN/Creatinine Ratio 13.4 16.3 Glucose 97 95 Calcium 9.0 9.2 Discharge Diet: No Restrictions Discharge Activity: Return to Normal Activity Home Medications: Medications to take at Discharge Acetaminophen [Tylenol] 500 mg PO Q6H PRN PRN 10/15/18 Rosuvastatin Calcium [Crestor] 10 mg PO QHS 10/15/18 levoFLOXacin tablet [Levaquin tablet] 750 mg PO DAILY@0600 #5 tablet 10/19/18 Following Prescrptions Were Given to Patient: levoFLOXacin tablet [Levaquin tablet] 750 mg PO DAILY@0600 #5 tablet Primary Care Physician: Brad Art MD [Primary Care Provider] - Please follow up with your Primary Care Physician in: in 1-2 weeks Disposition: Home Minutes spent on discharge:: 35 Patient Condition:: Stable Medical Necessity - Tobacco Use Smoking Status: Never smoker Meaningful Use Info Meaningful Use Diagnoses (Choose all that apply): None applicable Code Visit Inpatient E&M: 11609 Disch Hosp
== END 2018-10-19 10:05 | disposition home or self-care (01) | DRG 194 ==
LOC: ED 19:35 → MS3 21:28
PROVIDERS: Admitting Provider Student in an Organized Health Care Education/Training Program; Emergency Provider Emergency Medicine; Family Provider Family Medicine; PCP Family Medicine; Referring Provider Student in an Organized Health Care Education/Training Program; Visit Provider Internal Medicine
DX: J15.4 Pneumonia due to other streptococci (principal); N30.00 Acute cystitis without hematuria; E87.1 Hypo-osmolality and hyponatremia; E78.5 Hyperlipidemia, unspecified; E87.6 Hypokalemia; B95.7 Other staphylococcus as the cause of diseases classified elsewhere; Z90.710 Acquired absence of both cervix and uterus; Z85.41 Personal history of malignant neoplasm of cervix uteri; Z79.899 Other long term (current) drug therapy; Z23 Encounter for immunization
CPT/HCPCS: 36415; 71045; 71275; 74177; 80048; 80076; 81001; 83690; 83735; 84484; 84703; 85025; 85027; 87040; 87077; 87086; 87088; 87186; 87449; 87633; 93005; 94640; 97802; 99284; J7030; J7050; Q9967; 90686; A4216; J2405

== ENCOUNTER → 2018-11-03 09:49 | Outpatient (CLI) | payer BC, SELFPAY ==
[2018-10-15 22:04] VITALS: BMI 20.5
--- NOTE | 2018-11-03 09:51 | RAD_ITS ---
HISTORY: community acquired pneumonia EXAM: XR Chest 2 Views: COMPARISON: CTA chest 10/15/2018 and 2 view chest 11/12/2017 FINDINGS: Normal heart size. The previously seen left lower lobe infiltrate one year ago has resolved. No new or acute infiltrates. No vascular congestion or pleural effusion. Bilateral hyperinflation compatible with COPD. No pneumothorax. The bony thorax appears intact. RAD/Chest PA and Lateral IMPRESSION: 1. No acute cardiopulmonary disease. 2. COPD. at 0234 Reported and signed by: Enrique Valencia MD Electronically Signed: Enrique Valencia, at 2:33 EST Tel , Service support ,
== END ==
PROVIDERS: Family Provider Family Medicine; PCP Family Medicine; Referring Provider Family Medicine; Visit Provider Family Medicine
DX: J18.9 Pneumonia, unspecified organism (principal)
CPT/HCPCS: 71046

== ENCOUNTER → 2019-01-15 11:43 | Outpatient (CLI) | payer OTHER, SELFPAY ==
[2018-12-20 10:48] VITALS: BMI 20.5
[2019-01-15 14:22] LABS: Absolute Lymphocyte Count 1.19 X10^3/ul (0.83-4.51); Absolute Neutrophil Count 1.6 X10^3/uL (2.0-7.7); Basophil# 0.02 X10^3/uL; Basophil% 0.6 % (0-1); Eosinophils% 3.1 % (0-5); Hematocrit 41.1 % (37-47); Hemoglobin 13.1 g/dl (12.0-15.0); Lymphocyte # 1.19 X10^3/ul (4.0); Lymphocyte % 37.1 % (19-41); Mean Corp Hgb Conc 31.9 g/gl (32-36); Mean Corpuscular Hgb 29.8 pg (27.0-32.0); Mean Corpuscular Volume 93.4 fL (81-99); Monocyte% 9.3 % (0-10); Neutrophil % 49.9 % (47-70); Platelet Count 190 K/mm3 (150-450); RBC Distribution Width CV 12.8 % (11.6-14.6); RBC Distribution Width SD 42.3 fl (35.1-43.9); White Blood Count 3.2 K/mm3 (4.4-11.0)
[2019-01-15 14:23] LABS: POSITIVE COUNT NO; POSITIVE DIFFERENTIAL NO; POSITIVE MORPHOLOGY NO
[2019-01-15 14:46] LABS: ALB/GLOB Ratio 1.1 RATIO (0.9-2.4); AST(SGOT) 16 U/L (15-37); Alanine Aminotransfer ALT/SGPT 17 U/L (13-56); Albumin, Serum 3.9 g/dL (3.2-5.0); Alkaline Phosphatase 73 U/L (45-117); Anion Gap 7 (5-15); BUN 11 mg/dL (7-18); BUN/Creat Ratio 16.4 RATIO (10-20); Calcium,Total 8.5 mg/dL (8.5-10.1); Chloride 107 mmol/L (98-107); Cholesterol 249 mg/dL (200); Creatinine, Serum 0.67 mg/dL (0.55-1.02); EST Glomerular Filtration Rate 96 mL/min (>60); Est Glom Filt Rate - Afr Amer 117 mL/min (>60); Globulin 3.4 g/dL (2.2-4.2); Glucose 77 mg/dL (74-106); High Density Lipoprotein 61 mg/dL; Potassium 3.7 mmol/L (3.5-5.1); Protein, Total 7.3 g/dL (6.4-8.2); Sodium Level 140 mmol/L (136-145); Thyroid Stim Hormone (TSH) 1.69 uIU/mL (0.358-3.74); Triglycerides 191 mg/dL; Very Low Density Lipoprotein 38 mg/dL (5-40)
== END ==
PROVIDERS: Family Provider Family Medicine; PCP Family Medicine; Referring Provider Family Medicine; Visit Provider Family Medicine
DX: Z00.00 Encounter for general adult medical examination without abnormal findings (principal)
CPT/HCPCS: 36415; 80053; 80061; 84443; 85025

== ENCOUNTER → 2020-12-26 14:09 | Outpatient (CLI) | payer OTHER, SELFPAY ==
[2018-12-20 10:48] VITALS: BMI 20.5
--- NOTE | 2020-12-26 14:13 | RAD_ITS ---
STUDY: X-RAY - RIGHT SHOULDER REASON FOR EXAM: Female, 60 years old. Right shoulder pain. TECHNIQUE: 2 view(s) of the shoulder on 4 images. COMPARISON: None. FINDINGS: Normal glenohumeral articulation. Normal acromioclavicular joint. Normal acromion. Normal humeral head and visualized proximal humerus. The soft tissue structures are unremarkable. Normal visualized pulmonary apex. RAD/Shoulder min 2 Views IMPRESSION: No abnormality of the right shoulder. Electronically Signed: Earl Carver MD at 15:49 EST , Service support ,
== END ==
PROVIDERS: PCP Family Medicine; Referring Provider Family Medicine; Visit Provider Family Medicine
DX: M25.519 Pain in unspecified shoulder (principal)
CPT/HCPCS: 73030

== ENCOUNTER 2021-01-17 09:30 | Outpatient (RCR) | payer OTHER, SELFPAY ==
[2018-12-20 10:48] VITALS: BMI 20.5
--- NOTE | 2021-01-03 09:28 | HP.PTEVAL ---
Patient's Visit Information HELDER AVILA is a 60 year old F referred to Physical Therapy by Dr. Willard Multani MD with a diagnosis of RIGHT SHOULDER PAIN. Date of Evaluation: 01/03/21 Physical Therapist: Naseem Lagos, PT, Cert MDT, OCS - Visit Plan Frequency: 2x /Week Duration: 8WEEKS Plan: PT INTEREVNTIONS MANUAL THERAPY G-H JOINT GR 2-3,SCAPULAR,PROM/STRETCHING,STRENGTHENING RTC/SCAPULAR ,POSTURAL EX'S - Subjective This 60 y/o female presents o physical therapy with right shoulder pain. Patient has had pain about 2 months. Symptoms progessively worse at bame worse . Aggravating factors sleeping ,reaching overhead ,lifing affects ADLS's and housework tasks. Alleviating factors rest. Patient seen DR recommneded PT and had x-ray negative.Prescribed melocicam. Denies parathesia/tingling.Patient is left handed. Patient symtoms wher incidous onset which became progessivly worse . Described as sharp pain.Patient symptoms affects hoousework tasks and QOL. SOCAIL: . VOCATION: [employer] at [employer] - Pain Right Shoulder Pain Intensity (Out of 10): 6 Pain Intensity Range: 10 - Objective POSTURE: mild foward posture ,rounded shoulders. PALAPTION: unremarkable. NEURO: intact. AROM SHOULDER: flexion 100 degrees ,abduction 90 with substition,ER 70 degrees,IR L1. PROM: FLEXION 105 degrees.abduction 95 degrees in scapation. MMT: RTC 4/5,deltoid 4-/5,scapular strength 3-/5 MT/LT. CAPSULAR RESTRICTION: mod tight all planes. SCAPULAR -HUMERAL RYTHUM: less < 1:1 ratio - Special Tests R Shoulder External Rotation Lag Test - RC Tear: Negative R Shoulder Supine Impingement Test - RC Tear: Negative R Shoulder Lift Off Test - Subscapular Tear: Negative R Shoulder Drop Sign - IS Test: Negative R Shoulder Empty Can - SS: Negative R Shoulder Neer - Impingement: Positive R Shoulder Cadena Shahzad - Impingement: Positive R Shoulder Shrug Sign - OA/Adhesive Capsulitis: Positive - Goals Goal 1:: I with HEP Goal Time Frame: 8-12 Weeks Goal 2:: Decrease pain right shoulder by 60% or > to improve function Goal Time Frame: 8-12 Weeks Goal 3:: Patient to improve AROM right shoulder 145 degrees,abduction 140 degrees,ER 90 AND IR L5 to improve function. Goal Time Frame: 8-12 Weeks Goal 4:: Patient to increase strength deltoid 4/5 to improve function for ADLS' Goal Time Frame: 8-12 Weeks Goal 5:: Patient to improve quick dash by 10 points to improve QOL and function. Goal Time Frame: 4-6 Weeks - Rehabilitation Potential Physical Therapy Diagnosis: This patient has right shoulder adhesive capsulitus with poor ROM,capsular restriction,pain and weakness impairs ability to raise arm [place] ,reaching,.lifting with ADLS'a and housework tasks thus benifit from skilled PT Rehabilitation Potential: Good - Anticipated Interventions Patient/Client Instruction: Educate patient on: Condition, Plan of Care For the Purpose of:: To decrease pain, To increase ROM, To improve muscle performance and motor function, To increase tolerance to activity/condition/position, To improve performance and independence with ADL's, To improve ability of physical actions for home/community/work/leisure, To improve health of tissue, To decrease soft tissue restriction, To increase flexibility/ROM, To reduce risk of recurrence, To improve ability to perform tasks related to life management Therapeutic Exercise to Include: Strength training, Postural training, Flexibilty training, Passive ROM, Active ROM, Scapular Strength/Stabilization For the Purpose of:: To increase ROM, To improve muscle performance and motor function, To improve ability to perform ADL's, To increase tolerance to activity/condition/position, To improve ability of physical actions for home/community/work/leisure, To improve health of tissue, To decrease soft tissue restriction, To increase flexibility/ROM, To assume or resume ADL's, To improve health and function Manual Therapy Techniques to Include: Mobilization, Soft tissue mobilization Comment: G-H,SCAPULAR For the Purpose of:: To decrease pain, To increase ROM, To improve nutrient delivery to tissue, To increase oxygenation perfusion, To improve health of tissue, To decrease soft tissue restriction, To increase flexibility/ROM TENS: Yes IF ES: Yes Cryotherapy (ice pack, ice massage): Yes Thermo therapy (hot pack): Yes Ultrasound (thermal/non thermal): Yes For the Purpose of:: To decrease pain, To increase ROM, To improve nutrient delivery to tissue, To increase oxygenation perfusion, To improve health of tissue, To decrease soft tissue restriction Thank you for the opportunity to evaluate your patient. For Medicare and Medicare HMO plans, please review the plan of care and approve it. It will need to be FAXED BACK to us at [phone] for Medicare purposes. For Medicare only, by signing this I certify the plan of care. Please let me know if there are questions or concerns regarding this plan of care. Physician Signature: Date:
--- NOTE | 2021-08-02 08:16 | HP.PTDCNRP_ITS ---
HELDER AVILA was seen in my office for initial evaluation on 01/03/21. The following Plan of Care was established for this patient: Initial Frequency: 2x /Week Initial Duration: 8WEEKS Patient/Client Instruction: Educate patient on: Condition, Plan of Care For the Purpose of:: To decrease pain, To increase ROM, To improve muscle performance and motor function, To increase tolerance to activity/condition/position, To improve performance and independence with ADL's, To improve ability of physical actions for home/community/work/leisure, To improve health of tissue, To decrease soft tissue restriction, To increase flexibility/ROM, To reduce risk of recurrence, To improve ability to perform tasks related to life management Therapeutic Exercise to Include: Strength training, Postural training, Flexibilty training, Passive ROM, Active ROM, Scapular Strength/Stabilization For the Purpose of:: To increase ROM, To improve muscle performance and motor function, To improve ability to perform ADL's, To increase tolerance to activ ity/condition/position, To improve ability of physical actions for home/community/work/leisure, To improve health of tissue, To decrease soft tissue restriction, To increase flexibility/ROM, To assume or resume ADL's, To improve health and function Manual Therapy Techniques to Include: Mobilization, Soft tissue mobilization Comment: G-H,SCAPULAR For the Purpose of:: To decrease pain, To increase ROM, To improve nutrient delivery to tissue, To increase oxygenation perfusion, To improve health of tissue, To decrease soft tissue restriction, To increase flexibility/ROM TENS: Yes IF ES: Yes Cryotherapy (ice pack, ice massage): Yes Thermo therapy (hot pack): Yes Ultrasound (thermal/non thermal): Yes For the Purpose of:: To decrease pain, To increase ROM, To improve nutrient delivery to tissue, To increase oxygenation perfusion, To improve health of tissue, To decrease soft tissue restriction This patient was last seen in our office . Pertinent comments regarding their Physical therapy will appear below: Patient seen for PT for right shoulder pain for ROM, strengthening and manual therapy . At this point I will be discontinuing this patient from physical therapy. I would be happy to see this patient again in the future if found appropriate by the physician. Thank you! Naseem Lagos, PT, Cert MDT, OCS Balance/Gait/Functional tests - Balance/Special Test Scores Quick DASH Score: [phone]
== END 2021-01-17 19:00 | disposition home or self-care (01) ==
LOC: PT 09:30
PROVIDERS: PCP Family Medicine; Referring Provider Family Medicine; Visit Provider Family Medicine
DX: M25.511 Pain in right shoulder (principal)
CPT/HCPCS: 97110; 97140; 97161

== ENCOUNTER 2024-05-29 11:50 | Emergency (ER) | payer SELFPAY ==
[2024-05-29] VITALS (7 sets, daily range): BP systolic 95–128; BP diastolic 53–80; PULSE 54–72; RESP 14–18; TEMP 36.4–36.7; O2SAT 97–99; BMI 20.5
--- NOTE | 2024-05-29 12:30 | EKG12_ITS ---
Test Reason : CP Blood Pressure : / mmHG Vent. Rate : 063 BPM Atrial Rate : 063 BPM P-R Int : 146 ms QRS Dur : 072 ms QT Int : 458 ms P-R-T Axes : 076 -37 046 degrees QTc Int : 468 ms Normal sinus rhythm Left axis deviation Nonspecific T wave abnormality Abnormal ECG Confirmed by Rafita Mendoza ([id number]), tape editor ALEXA SANDERS ([id number]) on 06/01/2024 2:03:55 PM Referred By: ART Confirmed By:Rafita Mendoza
[2024-05-29] MEDS: Aspirin 81 MG TAB.CHEW 324 MG PO (12:36)
--- NOTE | 2024-05-29 12:43 | ED.VIS.CHEST ---
HPI History of Present Illness Chief Complaint: Chest Pain [facility] Medical History hx of cancer Allergy/AdvReac Type Severity Reaction Status Date / Time No Known Allergies Allergy Verified 05/29/24 11:53 Surgical History Hx of total hysterectomy Hx of cardiac cath Social History (System 11/20/19 @ 14:16 by Kerry Dorado) Smoking Status: Never smoker alcohol intake: current alcohol intake frequency: holidays/special occasions only EXAM Physical Exam Const Vital Signs: 05/29/24 11:51 05/29/24 11:52 05/29/24 11:56 Temperature 97.6 F L Temperature Source Temporal Pulse Rate 72 60 Respiratory Rate 18 17 Respiratory Effort Normal Non-Labored Blood Pressure 128/80 H 123/71 H Blood Pressure Mean 96 88 Pulse Ox 99 98 Oxygen Delivery Method Room Air Room Air 05/29/24 12:25 05/29/24 13:00 05/29/24 13:04 Temperature Temperature Source Pulse Rate 60 64 Respiratory Rate 18 16 Respiratory Effort Blood Pressure 95/53 L 111/80 Blood Pressure Mean 67 90 Pulse Ox 99 99 Oxygen Delivery Method Room Air Room Air Room Air 05/29/24 14:00 05/29/24 15:00 Temperature Temperature Source Pulse Rate 54 L 56 L Respiratory Rate 16 14 Respiratory Effort Blood Pressure 114/72 112/74 Blood Pressure Mean 86 86 Pulse Ox 98 97 Oxygen Delivery Method Room Air Room Air MDM MDM MDM Narrative Medical decision making narrative: HISTORY OF PRESENT ILLNESS: 63-year-old female presents with intermittent chest pain that is progressive gotten worse over the last few days. She notes shortness of breath and dizziness. She notes the pain is located epigastrium and goes up to her sternum and wraps around her back. She further states pain is sharp, tightness in her right chest. Denies any bleeding diathesis. Denies any recent volume loss such as vomiting or diarrhea. Denies recent cough fever chills. The patient denies recent surgery in the last 4 weeks or immobilization in the last 3 days, denies previous diagnosis of DVT or PE, hemoptysis, unilateral leg swelling or malignancy with treatment the last 6 months or palliative. No estrogen use noted. Patient denies sudden onset of pain, no tearing sensation, no migratory symptoms, no new numbness, weakness or loss of sensation. Patient denies family history or personal history of Connective tissue disorders (Marfan's Syndrome, Annika Danlos etc) REVIEW OF SYSTEMS: Pertinent positives: Chest pain, dizziness, epigastric abdominal pain Pertinent negatives: Vomiting, diarrhea PHYSICAL EXAM: Nursing triage notes reviewed, Vital signs reviewed Constitutional: please see mdm HENT: MMM Eyes: Pupils equal round and reactive to light, Extraocular muscles intact Neck: No stridor, no JVD, full neck ROM Lungs: Clear to auscultation, No wheezing or rales. No increased work of breathing, no conversational dyspnea, no accessory muscle use, no nasal flaring. No respiratory distress noted Heart: Regular rate and rhythm, No murmurs, No rubs and No gallops, 2+ distal pulses (radial, femoral, posterior tibial) in all extremities Abdomen: Soft, there is no tenderness, rigidity, rebound or guarding, no obvious peritoneal signs, no palpable pulsatile abdominal masses, no auscultated abdominal bruit : No CVAT Extremities: No edema Neuro: No focal neurological deficits, cranial nerves II through XII intact, 5/5 strength in all extremities. Intact sensation to light touch in all extremities, 2+ reflexes bilateral patella tendons. Normal gait. No ataxia. Skin: No rash or lesions noted MEDICAL DECISION MAKING: Chief Complaint: Chest pain, abdominal pain, dizziness External records reviewed: Reviewed prior CT scan of the abdomen pelvis in 2018 which showed status post hysterectomy, no obstruction, showed left lower lobe pneumonia Factors affecting care: history of pneumonia Social determinants of health: none History obtained from others: Consults: none [facility] Narrative: Patient was initially hemodynamically stable, afebrile and nontoxic-appearing. Exam without focal cardiopulmonary abnormalities. No pulse deficits. No stigmata of VTE. I considered the following differential diagnosis: ACS, PE, dissection, pancreatitis, perforated viscus I considered pulmonary embolism as a potential etiology. I considered obtaining a CTA of the chest with contrast to definitively rule out PE the patient had a low risk Wells score and as such have a lower suspicion for PE as a causative etiology I obtained a broad lab and imaging workup to further elucidate the etiology the patient complaint. ALL IMAGES (IF OBTAINED) HAVE BEEN PERSONALLY REVIEWED AND INTERPRETED BY MYSELF. CT of the chest abdomen pelvis shows evidence of aortic dissection, perforated viscus Lipase is wnl indicating no pancreatic inflammation. High-sensitivity troponin is negative, no evidence of myocardial ischemia x 2 Magnesium within normal limits Lipase is wnl indicating no pancreatic inflammation. LFTs show no evidence of hepatobiliary pathology. EKG with normal sinus rhythm, left ax deviation, normal intervals, no STEMI The synthesis of the patient's history, physical exam, labs images suggest no acute life-limiting etiology specifically no signs of aortic dissection, PE, ACS, pancreatitis, or perforated viscus. With 2 negative troponins her risk of ACS is exceedingly low and she is appropriate discharge home for outpatient follow-up for outpatient stress testing and further evaluation. Encouraged potassium supplementation through her diet and potassium containing fluid such as Body Armor Pedialyte. The patient and/or family, caregivers express understanding. The patient and/or family, caregivers agrees with the plan. Shared decision making: I will have a discussion with the patient and or visitors regarding risk/benefits of further testing or admission. They will be made aware of of the risk/benefits inherent in this decision they will be given the opportunity to voice understanding. Total critical care time today provided was at least 0 minutes. This excludes separately billable procedures. Critical care time (if documented) is secondary to the patient having high probability of clinically significant/life threatening deterioration in the patient's condition which required my urgent intervention. Impression: 1. Chest pain 2. Hypokalemia Dispo: Discharge This note was generated with [employer] dictation software. It may contain incorrect words, spelling, and punctuation that were not noted in review of the chart prior to signing. Lab Data Labs: Laboratory Results - last 24 hr 05/29/24 05/29/24 11:55 14:20 WBC 3.6 L RBC 4.61 Hgb 13.9 Hct 41.4 MCV 89.8 MCH 30.2 MCHC 33.6 RDW Std Deviation 40.2 RDW Coeff of Jose 12.3 Plt Count 185 MPV 10.6 Immature Gran % (Auto) 0.300 Neut % (Auto) 30.4 L Lymph % (Auto) 52.5 H Morrill % (Auto) 15.6 H Eos % (Auto) 0.6 Baso % (Auto) 0.6 Absolute Neuts (auto) 1.1 L Absolute Lymphs (auto) 1.88 Nucleated RBC % 0 Sodium 137 Potassium 3.4 L Chloride 105 Carbon Dioxide 24.0 Anion Gap 8 BUN 16 Creatinine 0.80 Estim Creat Clear Calc 71.23 Est GFR (MDRD) Af Amer 94 Est GFR (MDRD) Non-Af 78 BUN/Creatinine Ratio 20.1 H Glucose 103 Calcium 9.2 Magnesium 2.1 Total Bilirubin 0.50 Direct Bilirubin 0.12 AST 31 ALT 28 Alkaline Phosphatase 66 Troponin I High Sens 7 6 B-Natriuretic Peptide 15.8 Total Protein 7.7 Albumin 3.9 Globulin 3.8 Lipase 62 Radiography Diagnostic Testing: Clinical Impression(s) from Imaging Studies Chest/Abdomen/Pelvis CTA 05/29/24 13:16 IMPRESSION: Normal contrast-enhanced CT of the chest. Right renal cyst. Fullness of both renal pelves although no focal hydronephrosis seen. Fenestration of the liver. Electronically Signed: Joe Campbell MD at 13:57 EDT , Discharge Plan Triage Chief Complaint: Chest Pain ED Provider: Honorio Khan Dx/Rx/DC Orders Instructions: Chest Pain [facility] Primary Care Provider: Brad Art Referrals: Brad Art MD [Primary Care Provider] - Activity Restrictions/Additional Instructions: Thank you for trusting us with your care today! Please take Tylenol (2 pills, 650 mg), ibuprofen (2 pills, 400 mg) every 6 hours as needed for pain and fever control. Please return to the emergency department if your symptoms change or worsen. Please follow with your primary care physician for further outpatient evaluation and management. Print Language: Hong Konger Disposition Disposition: Home, Self Care
[2024-05-29 13:03] LABS: Absolute Lymphocyte Count 1.88 X10^3/uL (0.83-4.51); Absolute Neutrophil Count 1.1 X10^3/uL (2.0-7.7); Basophil# 0.02 X10^3/uL; Basophil% 0.6 % (0-1); Eosinophil# 0.02 X10^3/uL; Eosinophils% 0.6 % (0-5); Hematocrit 41.4 % (37-47); Hemoglobin 13.9 g/dL (12.0-15.0); Lymphocyte # 1.88 X10^3/ul (0.83-4.51); Lymphocyte % 52.5 % (19-41); Mean Corp Hgb Conc 33.6 g/dL (32-36); Mean Corpuscular Hgb 30.2 pg (27.0-32.0); Mean Corpuscular Volume 89.8 fL (81-99); Mean Platelet Vol. 10.6 fl (6.2-12.0); Monocyte# 0.56 X10^3/uL; Monocyte% 15.6 % (0-10); NRBC Flagged by Analyzer 0 % (0-5); Neutrophil # 1.09 X10^3/uL (2.7-7.7); Neutrophil % 30.4 % (47-70); Platelet Count 185 K/mm3 (150-450); RBC Distribution Width CV 12.3 % (11.6-14.6); RBC Distribution Width SD 40.2 fl (35.1-43.9); Red Blood Count 4.61 M/mm3 (4.2-5.4); White Blood Count 3.6 K/mm3 (4.4-11.0)
[2024-05-29 13:15] LABS: AST(SGOT) 31 U/L (15-37); Alanine Aminotransfer ALT/SGPT 28 U/L (13-56); Albumin, Serum 3.9 g/dL (3.2-5.0); Alkaline Phosphatase 66 U/L (45-117); Anion Gap 8 (5-15); BUN 16 mg/dL (7-18); BUN/Creat Ratio 20.1 RATIO (10-20); Bilirubin, Direct 0.12 mg/dL (0.00-0.30); Calcium,Total 9.2 mg/dL (8.5-10.1); Chloride 105 mmol/L (98-107); EST Glomerular Filtration Rate 78 mL/min (>60); Est Glom Filt Rate - Afr Amer 94 mL/min (>60); Estimated Creatinine Clearance 71.23 ml/min; Globulin 3.8 g/dL (2.2-4.2); Glucose 103 mg/dL (74-106); Lipase 62 U/L (13-75); Magnesium 2.1 mg/dL (1.6-2.6); Potassium 3.4 mmol/L (3.5-5.1); Protein, Total 7.7 g/dL (6.4-8.2); Sodium Level 137 mmol/L (136-145); Troponin-I HS (w/2H Reflex) 7 pg/mL (3.0-54.0)
--- NOTE | 2024-05-29 13:16 | CT_ITS ---
INDICATION: chest pain, abdominal pain EXAMINATION: CTA CHEST, ABDOMEN AND PELVIS WITH CONTRAST - TECHNIQUE: A CTA of the chest, abdomen, and pelvis is obtained with sagittal and coronal reconstructed MIP views. Three-dimensional surface rendered sequence of the thoracic and abdominal aorta was obtained. A radiation dose optimization technique was used for this scan. 100 mL of Isovue-[id number]. Oral contrast: None. COMPARISON: None. FINDINGS: Small bilateral axillary lymph nodes. CT CHEST: THORACIC AORTA: No atheromatous disease, no aneurysmal changes or dissection. Scattered calcific plaques at the level of the aortic arch. ABDOMINAL AORTA: No aneurysm or dissection. No significant atheromatous disease. The iliac arteries are unremarkable. LUNGS: The lungs are well-expanded without acute or chronic changes. No effusions or pneumothorax. MEDIASTINUM: The thyroid gland is normal. Small benign-appearing mediastinal lymph nodes. HEART: Heart is normal size. No pericardial effusion. No CAD. CT ABDOMEN AND PELVIS: LIVER: The liver enhances homogeneously. No masses identified. Fatty infiltration of the liver. GALLBLADDER: The CBD is normal. Normal gallbladder. SPLEEN: Normal. PANCREAS: No masses or inflammation. ADRENAL GLANDS: Normal. KIDNEYS AND URETERS: The kidneys both enhance appropriately. There are normal size and shape. Fullness of both renal pelves suggestive of extrarenal pelvis. No hydronephrosis or nephrolithiasis. There is a 1.6 cm cyst in the lower pole of the right kidney. STOMACH: Normal. SMALL BOWEL: No abnormal distention of the small bowel. MESENTERY: No mesenteric inflammation. No ascites. COLON: No significant diverticulosis, masses or inflammation. The colon otherwise is normal. There is a large fatty ileocecal valve. APPENDIX: The appendix is not visualized. IVC: Normal. RETROPERITONEUM: No retroperitoneal lymphadenopathy. PELVIC STRUCTURES: Normal bladder. Status post hysterectomy. SOFT TISSUES ABDOMEN: The anterior abdominal wall is normal. SOFT TISSUE CHEST: The extrathoracic soft tissues are normal. BONES: No fractures or significant degenerative disease. CT/CTA Chst, Abd, Pel W and/or WO IMPRESSION: Normal contrast-enhanced CT of the chest. Right renal cyst. Fullness of both renal pelves although no focal hydronephrosis seen. Fenestration of the liver. Electronically Signed: Joe Campbell MD at 13:57 EDT ,
[2024-05-29 13:34] LABS: BNP,B-Type NATRIURETIC PEPTIDE 15.8 pg/mL (0-100)
[2024-05-29] MEDS: 0.9% Normal Saline (500mL Bag) 500 ML 999 ML IV (14:35)
[2024-05-29 14:57] LABS: Reflex Troponin-HS? (from REC) Y
[2024-05-29 15:25] LABS: Troponin-I HS 6 pg/mL (3.0-54.0)
--- NOTE | 2024-05-29 15:52 | ED.RN ---
PT DECLINED COVID TEST PRIOR TO DISCHARGE
== END 2024-05-29 15:52 | disposition home or self-care (01) ==
PROVIDERS: Emergency Provider Emergency Medicine; PCP Family Medicine; Visit Provider Emergency Medicine
DX: R07.9 Chest pain, unspecified (principal); E87.6 Hypokalemia
CPT/HCPCS: 71275; 74174; 80048; 80076; 83690; 83735; 83880; 84484; 85025; 93005; 99284; J7040; Q9967; A4216